=== PATIENT | female | born 1965 | race Two or more races ===

== ENCOUNTER → 2025-04-13 | Outpatient (CLI) | payer MEDICAID, SELFPAY ==
--- NOTE | 2025-04-13 | XR_ITS ---
Examination: Abdomen sonogram, complete Date and time of exam: April 13, 2025, 1132 hours INDICATIONS: Generalized abdominal pain beginning 3 weeks ago. Technique: Multiple real-time grayscale transabdominal sonographic images of the abdomen have been obtained. Findings: Normal gallbladder. Normal common bile duct 0.4 cm Pancreatic head 1.9 cm Aorta not enlarged. Liver 12.3 cm fatty infiltration Normal hepatopetal portal venous flow Patent IVC Right kidney 9.2 cm renal cortex 0.8 cm Left kidney 10.0 cm renal cortex 2.0 cm Mild renal scar formation No hydronephrosis Spleen 8.4 cm IMPRESSION: Normal gallbladder Right renal cortical thinning No hydronephrosis or renal calculi
== END | disposition home or self-care (01) ==
PROVIDERS: PCP Physician Assistant; Referring Provider Physician Assistant; Visit Provider Physician Assistant
DX: R10.9 Unspecified abdominal pain (principal)
CPT/HCPCS: 76700

== ENCOUNTER → 2025-05-08 | Outpatient (CLI) | payer MEDICAID, SELFPAY ==
--- NOTE | 2025-05-08 08:15 | XR_ITS ---
Examination: Transvaginal ultrasound of the pelvis, complete Technique: Transvaginal sonographic images pelvis performed using robison scale imaging Exam date and time: May 09, 2025, 0819 hours INDICATIONS: Pelvic pain beginning 3 weeks ago FINDINGS: Uterus 5.8 cm no uterine mass, endometrial site 0.5 cm Ovaries obscured by bowel gas IMPRESSION: Limited study No uterine mass.
--- NOTE | 2025-05-08 08:45 | XR_ITS ---
Examination: Screening digital mammography, bilateral Computer aided detection 3-D breast Tomosynthesis, bilateral Date and time of exam: May 08, 2025, 0840 hours, compared to mammograms dating to September 14, 2014 Indication: Screening Technique: Nonmagnified MLO, CC views of the breasts to been obtained, reconstructed from 3-D Tomosynthesis images. R2 computer aided detection program utilized for evaluation of suspicious masses and/or abnormal calcifications. 3-D Tomosynthesis images obtained. Findings: The breasts are heterogeneously dense, which may obscure small masses Benign calcifications. No interval suspicious masses Impression: BI-RADS category II: Benign Findings. Recommend 1 year follow-up mammogram.
== END | disposition home or self-care (01) ==
LOC: CDIM 07:54
PROVIDERS: PCP Physician Assistant; Referring Provider Physician Assistant; Visit Provider Physician Assistant
DX: Z12.31 Encounter for screening mammogram for malignant neoplasm of breast (principal); R92.323 Mammographic fibroglandular density, bilateral breasts; R92.1 Mammographic calcification found on diagnostic imaging of breast; R10.20 Pelvic and perineal pain unspecified side
CPT/HCPCS: 76830; 77063; 77067